=== PATIENT | female | born 1985 | race Native Hawaiian/Other Pacific Islander ===

== ENCOUNTER 2019-12-19 07:45 | Day surgery (SDC) | payer BC ==
[~2019-12-19] VITALS: Ht 30.5 cm; Wt 0.5 kg
[~2019-12-19 07:45] MED LIST: ADIPEX PO; BIRTH CONTROL
[2019-12-19 08:25] LABS: PLATELET COUNT 334 K/uL (152-353)
[2019-12-19 08:34] LABS: POTASSIUM 3.7 mmol/L (3.6-5.2)
== END 2019-12-19 10:32 | disposition home or self-care (01) ==
LOC: OR 07:45
PROVIDERS: Internal Medicine
PROC: 0DB68ZZ Excision of Stomach, Via Natural or Artificial Opening Endoscopic (ICD-10-PCS; principal; 2019-12-19)
PROC: 0D738ZZ Dilation of Lower Esophagus, Via Natural or Artificial Opening Endoscopic (ICD-10-PCS; 2019-12-19)
DX: R10.13 Epigastric pain (principal); R13.10 Dysphagia, unspecified; K22.2 Esophageal obstruction; K44.9 Diaphragmatic hernia without obstruction or gangrene; K21.9 Gastro-esophageal reflux disease without esophagitis
CPT/HCPCS: 80053; 81025; 85027; J1100; J2001; J2250; J2405; J2704; J2765